=== PATIENT | male | born 1985 | race Caucasian/White ===

== ENCOUNTER 2018-01-30 17:43 | Emergency (ER) | payer MEDICAID ==
[2018-01-30] MEDS: HYDROCODONE/APAP (5/325) TAB PO (18:52)
[2018-01-30] MEDS: DIPHTH/TET/ACEL PERTUSS (ADULT) 0.5 ML VIAL IM* (19:11)
[2018-01-30] MEDS: FLUORESCEIN STRIP LEFT EYE (19:12)
[2018-01-30 19:56] LABS: ADD MAN DIFF? NO
[2018-01-30 19:59] LABS: WHITE BLOOD COUNT 10.4 10^3/ul (4.8-10.8)
[2018-01-30 19:59] LABS: BASOPHIL # 0.1 10^3/ul (0.0-0.1); BASOPHILS % 0.9 % (0.0-2.0); EOSINOPHILS # 0.9 10^3/ul (0.0-0.5); EOSINOPHILS % 8.5 % (0.0-7.0); HEMATOCRIT 42.7 % (42.0-52.0); HEMOGLOBIN 14.5 g/dl (14.0-18.0); LYMPHOCYTES # 3.3 10^3/ul (0.8-2.9); LYMPHOCYTES % 32.1 % (15.0-51.0); MEAN CORPUSCULAR HEMOGLOBIN 30.2 pg (29.0-33.0); MEAN PLATELET VOLUME 10.9 fl (7.4-10.4); MONOCYTE # 0.9 10^3/ul (0.3-0.9); MONOCYTES % 8.2 % (0.0-11.0); NEUTROPHIL # 5.2 10^3/ul (1.6-7.5); NEUTROPHILS % 49.9 % (39.0-77.0); PLATELET COUNT 247 10^3/UL (140-415); RED CELL DISTRIBUTION WIDTH 12.8 % (11.5-14.5)
[2018-01-30 20:19] LABS: INR 0.96; PROTIME 12.9 Sec (11.9-14.9)
[2018-01-30 20:20] LABS: PARTIAL THROMBOPLASTIN TIME 31.4 Sec (23.0-35.0)
[2018-01-30] MEDS: ONDANSETRON 4 MG INJ IV (20:23)
[2018-01-30] MEDS: CEFTRIAXONE 1 GM/50 ML (PMX) 50 ML IVPB (20:23)
[2018-01-30] MEDS: morphine 4 MG/ML VIAL IV (20:23)
[2018-01-30] MEDS: LACTATED RINGER'S 1,000 ML IV (20:23)
[2018-01-30 20:32] LABS: ANION GAP 10 (5-13); BLOOD UREA NITROGEN 15 mg/dl (7-20); CALCIUM 9.4 mg/dl (8.4-10.2); CARBON DIOXIDE 27 mmol/L (21-31); CHLORIDE 105 mmol/L (97-110); CREATININE 1.05 mg/dl (0.61-1.24); Estimated GFR > 60 mL/min (>60); GLUCOSE 96 mg/dl (70-220); POTASSIUM 4.2 mmol/L (3.5-5.1); SODIUM 142 mmol/L (135-144)
== END 2018-01-31 00:05 | disposition short-term general hospital (02) ==
LOC: E/R 01-31 00:05 → FTE 17:43
DX: H33.22 Serous retinal detachment, left eye (principal); H44.6 Retained (old) intraocular foreign body, magnetic; H53.132 Sudden visual loss, left eye; Z18.11 Retained magnetic metal fragments; Z23 Encounter for immunization; Z87.891 Personal history of nicotine dependence
CPT/HCPCS: 36415; 70450; 76536; 80048; 85025; 85610; 85730; 90471; 90715; 96374; 96375; 99285-25